=== PATIENT | male | born 1985 | race Hispanic/Latino ===

== ENCOUNTER 2019-01-11 23:43 | Emergency (ER) | payer SELFPAY ==
[2019-01-12] MEDS ORDERED: Ibuprofen 800 MG TAB ONE (00:26)
== END 2019-01-12 00:29 | disposition home or self-care (01) ==
LOC: SCSER 23:43
DX: T63.2X1A Toxic effect of venom of scorpion, accidental (unintentional), initial encounter (principal); F17.210 Nicotine dependence, cigarettes, uncomplicated
CPT/HCPCS: 99282